=== PATIENT | female | born 1970 | race Caucasian/White ===

== ENCOUNTER 2018-10-16 04:02 | Emergency (ER) | payer OTHER ==
[2018-10-16 05:33] LABS: #Basophils 0.1 thou/uL (0.0-0.2); #Eosinphils 0.3 thou/uL (0.0-0.7); #Lymphocytes 1.9 thou/uL (1.20-3.40); #Monocytes 0.7 thou/uL (0.11-0.59); #Neutrophils 5.2 thou/uL (1.40-6.50); %Basophils 0.7 % (0.0-1.0); %Lymphocytes 22.9 % (21.0-51.0); %Monocytes 8.8 % (0.0-10.0); %Neutrophils 63.7 % (42.0-75.0); Hemoglobin 8.7 g/dL (12.0-16.0); Mean Corpuscular HGB CONC 30.5 g/dL (32.0-36.0); Mean Corpuscular Hemoglobin 23.5 pg (27.0-31.0); Platelet Count 269 thou/uL (130-400); RBC Distribution Width 19.5 % (11.5-14.5); Red Blood Cell (RBC) Count 3.71 mill/uL (4.20-5.40); White Blood Cell (WBC) Count 8.2 thou/uL (4.8-10.8)
== END 2018-10-16 05:48 | disposition home or self-care (01) ==
LOC: ERS 04:02
DX: C44.41 Basal cell carcinoma of skin of scalp and neck (principal); Z79.899 Other long term (current) drug therapy
CPT/HCPCS: 36415; 85025; 99283